=== PATIENT | male | born 1945 | race Caucasian/White ===

== ENCOUNTER → 2017-02-04 | Outpatient (CLI) | payer OTHER ==
[~2017-02-04] MED LIST: RIVA1.5T PO; RIVA1TAB4 PO; ULT50X PO
[2017-02-04 12:46] LABS: BASO % 0.4 %; BASO ABS # 0.03 K/uL (0-0.2); COMPLETE YES; EOS % 2.3 %; HEMATOCRIT 48.6 % (42-52); IG% 0.1 %; LYMPH % 25.6 %; LYMPH ABS # 1.88 K/uL (1.2-3.4); MEAN CELL VOLUME 93.8 fL (80-100); MEAN CORPUSCULAR HEMOGLOBIN 30.1 pg (25-34); MEAN CORPUSCULAR HGB CONC 32.1 g/dl (32-36); MEAN PLATELET VOLUME 11.8 fL (7.4-10.4); MONO % 6.4 %; NEUT % 65.2 %; PLATELET COUNT 190 K/uL (130-400); RED BLOOD COUNT 5.18 M/uL (4.7-6.1); WHITE BLOOD COUNT 7.35 K/uL (4.8-10.8)
[2017-02-04 15:05] LABS: ALT/SGPT 26 U/L (12-78); BLOOD UREA NITROGEN 18 mg/dl (7-18); BUN/CREATININE RATIO 18.2 (10-20); CALCIUM 8.2 mg/dl (8.5-10.1); CARBON DIOXIDE 29 mmol/L (21-32); CHLORIDE 108 mmol/L (98-107); GLUCOSE 102 mg/dl (70-99); HDL CHOLESTEROL 39 mg/dl; SODIUM 143 mmol/L (136-145)
[2017-02-04 15:07] LABS: ALB/GLOB RATIO 1.1 (0.9-2); ALKALINE PHOSPHATASE 42 U/L (45-117); AST/SGOT 14 U/L (15-37); CHOLESTEROL 151 mg/dl (0-200); CHOLESTEROL/HDL RATIO 3.9; LDL CHOLESTEROL CALCULATED 91 mg/dl; TRIGLYCERIDES 103 mg/dl (0-150); VERY LOW DENSITY LIPOPROT CALC 21 mg/dl
== END | disposition home or self-care (01) ==
LOC: C.LABPBG 08:16
PROVIDERS: ATTEND Internal Medicine Geriatric Medicine
DX: M10.9 Gout, unspecified (principal); Z79.01 Long term (current) use of anticoagulants; I10 Essential (primary) hypertension; K76.0 Fatty (change of) liver, not elsewhere classified; R91.1 Solitary pulmonary nodule; E55.9 Vitamin D deficiency, unspecified

== ENCOUNTER → 2017-05-21 | Outpatient (CLI) | payer OTHER ==
--- NOTE | 2017-05-21 08:46 | DIAGNOSTIC IMAGING REPORT ---
CT SCAN OF THE CHEST WITHOUT IV CONTRAST CLINICAL HISTORY: Follow-up pulmonary nodule. COMPARISON STUDY: Chest CT scans dated 05/20/2016 and 05/07/2015. TECHNIQUE: CT scan of the thorax was performed from the thoracic inlet to the upper abdomen. Images are reviewed in the axial, sagittal, and coronal planes. IV contrast was not administered for this examination. A dose lowering technique was utilized adhering to the principles of ALARA. CT DOSE: 730.23 mGy.cm FINDINGS: Thyroid: Mildly atrophic. A subcentimeter nodule is noted in the left lobe. Thoracic aorta: The thoracic aorta is normal in caliber and demonstrates standard 3-vessel arch anatomy. Heart: The heart is normal in size and there is trace pericardial fluid. There are scattered coronary artery calcifications. The pulmonary trunk is normal in caliber. Lungs and pleural spaces: No airspace consolidation or pleural effusion is identified. A small fat-containing Bochdalek hernia is seen at the left lung base. Scattered foci of nodular pleural thickening are seen along the right major and minor fissures. The largest measures 6 mm and is seen in the right lower lobe on image #[id number]. Small foci of nodular thickening are also seen along the left major fissure. No new pulmonary nodules are identified. The trachea and central airways are clear. Mediastinum: There is no mediastinal lymphadenopathy. Radha: Not well assessed without IV contrast. Axillae: There is no axillary lymphadenopathy. Upper abdomen: There is a small hiatal hernia. Glandular atrophy is noted in the partially imaged pancreas. Partially visualized upper abdominal viscera is otherwise within normal limits. Skeletal structures: The Skeletal structures are osteopenic. No lytic or blastic bony lesions are seen. Mild degenerative change is seen throughout the thoracic spine. Hemangiomas are suggested in the bodies of T4 and T12. IMPRESSION: 1. There is no airspace consolidation or pleural effusion. 2. There is unchanged appearance of low suspicion foci of nodular pleural thickening as detailed above. These have not significantly changed from 05/07/2015 end are doubtful significance given over 2 years of stability. 3. No new or concerning pulmonary lesion is identified. Electronically signed by: Eduardo Otto M.D. 05/21/2017 8:45 AM Dictated Date/Time: 05/21/2017 8:40 AM
== END | disposition home or self-care (01) ==
LOC: C.CTS 08:18
PROVIDERS: ATTEND Internal Medicine Geriatric Medicine
DX: R91.1 Solitary pulmonary nodule (principal)